=== PATIENT | male | born 1985 | race African-American/Black ===

== ENCOUNTER 2016-12-22 15:53 | Emergency (ER) | payer OTHER ==
[2016-12-22] MEDS ORDERED: Tetan/Diph/Pertus SYR(Tdap)* 0.5 ML SYR(BOOSTRIX) use SYR IM ONE (17:02)
[2016-12-22 17:22] VITALS: BP 134/71
--- NOTE | 2016-12-22 18:55 | ED ---
Matias Garcia Thomas, scribed for Barrington Solitario MD on 12/22/16 at 1637 . Head Injury - HPI Summary HPI Summary: Pt is a 34 y/o male who presents to the ED c/o head pain s/p injury. He was injured when a kid hit his head with a bat at baseball practice. Does not know the time of injury. There is numbness and some pressure in the affected area. Pain is rated 1/10 in severity in the L parietal region. 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 Sx aggravated and alleviated by nothing. Denies syncope, N/V, blurred vision, LOC, dizziness, and weakness. - History Of Current Complaint Chief Complaint: EDHeadInjury Stated Complaint: HEAD INJURY Time Seen by Provider: 12/22/16 16:25 Hx Obtained From: Patient Mechanism Of Injury: Blunt Trauma, Direct Blow - from a baseball bat swung by a child Onset/Duration: Still Present Onset of Pain: Prior to Arrival Severity Currently: Mild Severity Initially: Mild Pain Intensity: 1 Pain Scale Used: 0-10 Numeric Location of Head Injury: Parietal - Left Location: Discrete At: - L parietal Character: Pressure, Other: - numbness Aggravating Factor(s): Other: - none Alleviating Factor(s): Other: - none Associated Signs And Symptoms: Other: - Denies syncope, blurred vision, LOC, dizziness, and weakness. - Allergies/Home Medications Allergies/Adverse Reactions: Allergies Allergy/AdvReac Type Severity Reaction Status Date / Time No Known Allergies Allergy Verified 11/27/13 08:54 PMH/Surg Hx/FS Hx/Imm Hx Previously Healthy: Yes Endocrine/Hematology History: Denies: Hx Diabetes, Hx Thyroid Disease Cardiovascular History: Denies: Hx Congestive Heart Failure, Hx Deep Vein Thrombosis, Hx Hypertension , Hx Myocardial Infarction, Hx Pacemaker/ICD Respiratory History: Denies: Hx Asthma, Hx Chronic Obstructive Pulmonary Disease (COPD), Hx Lung Cancer, Hx Pneumonia, Hx Pulmonary Embolism GI History: Denies: Hx Gall Bladder Disease, Hx Gastrointestinal Bleed, Hx Ulcer, Hx Urosepsis History: Denies: Hx Kidney Stones, Hx Renal Disease Neurological History: Denies: Hx Dementia, Hx Migraine, Hx Seizures, Hx Transient Ischemic Attacks (TIA) Psychiatric History: Denies: Hx Anxiety, Hx Depression, Hx Schizophrenia, Hx Bipolar Disorder Infectious Disease History: No Infectious Disease History: Denies: Traveled Outside the [place] in Last 30 Days - Family History Known Family History: Positive: Diabetes - Social History Alcohol Use: Weekly Substance Use Type: Reports: Marijuana Substance Use Comment - Amount & Last Used: DAILY Smoking Status (MU): Heavy Every Day Tobacco Smoker Type: Cigarettes Amount Used/How Often: 10 CIG/DAY Length of Time of Smoking/Using Tobacco: 10 years Have You Smoked in the Last Year: Yes Review of Systems Negative: Blurred Vision Negative: Vomiting, Nausea Positive: Other - POS: small laceration in the injured region Neurological: Other - NEG: loss of vision, dizziness. POS: Numbness, pressure in the affected area Negative: Weakness, Syncope All Other Systems Reviewed And Are Negative: Yes Physical Exam - Summary Physical Exam Summary: VITAL SIGNS: Reviewed. GENERAL: Patient is a well-developed and nourished male who is lying comfortably in the stretcher. Patient is not in any acute respiratory distress. HEAD AND FACE: No ecchymosis, hematomas or skull depressions. No sinus tenderness. EYES: PERRLA, EOMI x 2, No injected conjunctiva, no nystagmus. EARS: Hearing grossly intact. Ear canals and tympanic membranes are within normal limits. MOUTH: Oropharynx within normal limits. NECK: Supple, trachea is midline, no adenopathy, no JVD, no carotid bruit, no c- spine tenderness, neck with full ROM. CHEST: Symmetric, no tenderness at palpation LUNGS: Clear to auscultation bilaterally. No wheezing or crackles. CVS: Regular rate and rhythm, S1 and S2 present, no murmurs or gallops appreciated. ABDOMEN: Soft, non-tender. No signs of distention. No rebound no guarding, and no masses palpated. Bowel sounds are normal. EXTREMITIES: FROM in all major joints, no edema, no cyanosis or clubbing. NEURO: Alert and oriented x 3. No acute neurological deficits. Speech is normal and follows commands. SKIN: Dry and warm. Small 1-cm laceration in the left parietal occipital area of the head. Triage Information Reviewed: Yes Vital Signs On Initial Exam: Initial Vitals Temp Pulse Resp BP Pulse Ox 100.8 F 126 22 155/81 95 12/22/16 15:55 12/22/16 15:55 12/22/16 15:55 12/22/16 15:55 12/22/16 15:55 Vital Signs Reviewed: Yes - [place] Coma Scale Coma Scale Total: 15 Procedures - Laceration/Wound Repair 1 Location: head Description: Linear Anesthesia: 1.0%, [place] - 3.5 cc Length, Depth and Shape: Three small lacerations: two parallel horizontally and one smaller laceration that is perpendicular. Closure: [place] #__ - 4: 2 in one laceration and 1 in each other Diagnostics - Vital Signs Vital Signs Temp Pulse Resp BP Pulse Ox 12/22/16 16:13 115 98 12/22/16 16:03 98.2 F 115 16 155/81 98 12/22/16 15:55 100.8 F 126 22 155/81 95 - Laboratory Lab Statement: Any lab studies that have been ordered have been reviewed, and results considered in the medical decision making process. Re-Evaluation - Re-Evaluation First Eval Re-Evaluation Time: 16:53 Change: Unchanged Comment: Discussed last tetanus Vx and the pt will receive one in the ED. Pt continues to refuse any scans or imaging or bloodwork. Head Injury Course/Dx Course Of Treatment: Pt is a 34 y/o male who presents to the ED c/o head pain s/ p injury. He was injured when a kid hit his head with a bat at baseball practice. Does not know the time of injury. There is numbness and some pressure in the affected area. Pain is rated 1/10 in severity in the L parietal region. 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 Sx aggravated and alleviated by nothing. Denies syncope, N/V, blurred vision, LOC, dizziness, and weakness. After physical exam the patient has swelling in his R cheek and has a laceration in the superficial L parietal occipital area. The benefits and risks of a CT head and facial bones were discussed with the patient. He is A& Ox3 and is competent and he continues to refuse. He accepts conner. [address] and there were no complications. Patient was given a tetanus booster in the ED course. He was discharged home to follow up with his primary care provider in three days. He was hemodynamically stable and A&Ox3. - Diagnoses Provider Diagnoses: Head contusion, Laceration of head Discharge - Discharge Plan Condition: Stable Disposition: HOME Patient Education Materials: Laceration (ED), Contusion in Adults (ED), Staple Care (ED) Referrals: [facility] [place] [facility] REFERRAL [Outside] - 3 Days The documentation as recorded by the Matias matias Thomas accurately reflects the service I personally performed and the decisions made by me, Barrington Solitario MD.
== END 2016-12-22 17:24 | disposition home or self-care (01) ==
LOC: ED 15:53
DX: S01.91XA Laceration without foreign body of unspecified part of head, initial encounter (principal); W22.8XXA Striking against or struck by other objects, initial encounter; Y93.9 Activity, unspecified; Y92.9 Unspecified place or not applicable; Y99.9 Unspecified external cause status; H53.8 Other visual disturbances; R42 Dizziness and giddiness; F17.210 Nicotine dependence, cigarettes, uncomplicated
CPT/HCPCS: 12001; 90715; 99282

== ENCOUNTER 2017-08-28 15:26 | Emergency (ER) | payer OTHER ==
[2017-08-28 15:59] VITALS: BP 149/99
[2017-08-28] MEDS ORDERED: Ketorolac INJ* 60 MG/2 ML VIAL IM ONE (16:18)
--- NOTE | 2017-08-28 16:38 | UC ---
Kimberly Garcia Gabriel, scribed for Barrington Solitario MD on 08/28/17 at 1613 . Back Pain HPI - HPI Summary HPI Summary: This patient is a 32 year old M presenting to [facility] [place] with a chief complaint of lower back pain that is interfering with daily activities. The patient rates the pain 8/10 in severity in the left flank. Symptoms aggravated by movement. Patient reports the pain is affecting his sleep. Patient denies heavy lifting, dysuria, and injury - History of Current Complaint Chief Complaint: UCBackPain Stated Complaint: BACK PAIN Time Seen by Provider: 08/28/17 16:09 Hx Obtained From: Patient Onset/Duration: Lasting Days, Still Present Timing: Constant Severity Initially: Severe Severity Currently: Severe Pain Intensity: 8 Pain Scale Used: 0-10 Numeric Back Pain: Is Diffuse Aggravating Factor(s): Movement, Bending Associated Signs And Symptoms: Positive: Negative - heavy lifting, dysuria, injury, Other - the pain is effecting his sleep - Allergies/Home Medications Allergies/Adverse Reactions: Allergies Allergy/AdvReac Type Severity Reaction Status Date / Time No Known Allergies Allergy Verified 08/28/17 15:59 PMH/Surg Hx/FS Hx/Imm Hx Previously Healthy: Yes Other History Of: Negative For: HIV, Hepatitis B, Hepatitis C - Surgical History Surgical History: None - Family History Known Family History: Positive: Diabetes, Other - cancer Negative: Cardiac Disease, Hypertension, Renal Disease, Respiratory Disease, Seizure Disorder, Blood Disorder - Social History Lives: With Family Alcohol Use: Occasionally Substance Use Type: Marijuana Substance Use Comment - Amount & Last Used: DAILY Smoking Status (MU): Heavy Every Day Tobacco Smoker Type: Cigarettes Amount Used/How Often: 10 CIG/DAY Length of Time of Smoking/Using Tobacco: 10 years Have You Smoked in the Last Year: Yes Review of Systems Genitourinary: Negative - dysuria Musculoskeletal: Other: - lower back pain All Other Systems Reviewed And Are Negative: Yes Physical Exam Triage Information Reviewed: Yes Vital Signs: Initial Vital Signs Temp 98.1 F 08/28/17 15:57 Pulse 67 08/28/17 15:57 Resp 18 08/28/17 15:57 BP 149/99 08/28/17 15:57 Pulse Ox 100 08/28/17 15:57 Vital Signs Reviewed: Yes - Additional Comments VITAL SIGNS: Reviewed. GENERAL: Patient is a well developed and nourished M who is lying comfortable in the stretcher. Patient is not in any acute respiratory distress. HEAD AND FACE: Normocephalic EYES: PERRLA, EOMI x 2. EARS: Hearing grossly intact. MOUTH: Oropharynx within normal limits. NECK: Supple, trachea is midline, no adenopathy, no JVD, no carotid bruit. CHEST: Symmetric, no tenderness at palpation LUNGS: Clear to auscultation bilaterally. No wheezing or crackles. CVS: Regular rate and rhythm, S1 and S2 present, no murmurs or gallops appreciated. ABDOMEN: Soft, non-tender. Bowel sounds are normal. No abdominal abnormal pulsations. Back: Right para spinal muscle is tender to palpation. No vertebral tenderness EXTREMITIES: Full ROM in all major joints, no edema, no cyanosis or clubbing. NEURO: Alert and oriented x 3. No acute neurological deficits. Speech is normal and follows commands. SKIN: Dry and warm Back Pain Course/Dx - Course Course Of Treatment: Pt was instructed to return to the urgent care or go to ER immediately if any of the symptoms return or worsens. Plan of care was discussed with the patient and pt understands and agrees. All questions were answered to patient satisfaction. There were no further complaints or concerns. I did not any imagining because there was no vertebral tenderness. I do no suspect kidney stones because there is no costovertebral tenderness if the pain continues or gets worse he was instructed to report to ED. Patient was given toradol and discharged home. The patient was found to have increase BP in UC. The patient will follow up with PCP for better control of BP. - Differential Dx/Diagnosis Differential Diagnosis/HQI/PQRI: Strain, Sprain Provider Diagnoses: Muscular skeleton pain, lumbar strain, elevated blood pressure with no history of hypertension Discharge - Discharge Plan Condition: Stable Disposition: HOME Prescriptions: Cyclobenzaprine TAB* [Flexeril 10 MG TAB*] 10 mg PO TID PRN #9 tab PRN Reason: Pain Naproxen TAB* [Naprosyn 375 mg TAB*] 375 mg PO Q8H #30 tab Patient Education Materials: Low Back Strain (ED) Referrals: [facility] [place] [facility] REFERRAL [Outside] No Primary Care Phys,NOPCP [Primary Care Provider] - Additional Instructions: Your blood pressure was elevated during todays visit; please follow up with your primary care provider within a week for further evaluation. The documentation as recorded by the Kimberly matias Gabriel accurately reflects the service I personally performed and the decisions made by , Barrington Solitario MD.
== END 2017-08-28 16:35 | disposition home or self-care (01) ==
LOC: UCEAST 15:26
DX: S39.012A Strain of muscle, fascia and tendon of lower back, initial encounter (principal); R03.0 Elevated blood-pressure reading, without diagnosis of hypertension; F17.210 Nicotine dependence, cigarettes, uncomplicated; X58.XXXA Exposure to other specified factors, initial encounter; Y92.9 Unspecified place or not applicable
CPT/HCPCS: 99212; G0463